=== PATIENT | female | born 1955 | race Two or more races ===

== ENCOUNTER 2022-07-02 02:32 | Inpatient (IN) | payer OTHER ==
[~2022-07-02] VITALS: Ht 154.9 cm; Wt 77.6 kg
--- NOTE | 2022-07-02 02:40 | NUR ---
BB RA 86 FROM HOME FOR GEN WEAKNESS AND TACHYCARDIA. PLACED IN BED ONE ON MONTIOR. NOTED WITH ELEVATED HR. MADE AWARE.
[2022-07-02] MEDS ORDERED: ETOMIDATE 2 MG/ML VIAL IV ONE (03:00)
[2022-07-02] MEDS ORDERED: ETOMIDATE 2 MG/ML VIAL ONE (03:01)
[2022-07-02 03:40] LABS: BASOPHILS # (AUTO) 0.1 K/uL (0.0-0.2); BASOPHILS % (AUTO) 0.4 % (0.0-2.0); EOSINOPHILS % (AUTO) 0.1 % (0.0-6.0); HEMATOCRIT 33 % (33-45); HEMOGLOBIN 10.7 g/dL (11.5-14.8); LYMPHOCYTES # (AUTO) 1.7 K/uL (0.8-4.8); LYMPHOCYTES % (AUTO) 11.5 % (20.0-44.0); MEAN CORPUSCULAR HGB CONC 33 g/dl (31.0-36.0); MEAN CORPUSCULAR VOLUME 86 fL (82-100); MONOCYTES # (AUTO) 0.8 K/uL (0.1-1.30); MONOCYTES % (AUTO) 5.5 % (2.0-12.0); NEUTROPHILS # (AUTO) 12.5 K/uL (1.8-8.9); NEUTROPHILS % (AUTO) 82.5 % (43.0-81.0); PLATELET COUNT (AUTO) 390 K/uL (150-450); WHITE BLOOD COUNT (AUTO) 15.1 K/uL (4.3-11.0)
[2022-07-02 03:53] LABS: CARBON DIOXIDE 20 mmol/L (21-32); CHLORIDE 97 mmol/L (98-107); CREATININE 0.8 mg/dL (0.6-1.3); GLUCOSE 184 mg/dL (74-106); POTASSIUM 4.5 mmol/L (3.5-5.1); SODIUM SERUM 134 mmol/L (136-145); UREA NITROGEN, BLOOD 13 mg/dL (7-18)
[2022-07-02] MEDS ORDERED: VANCOMYCIN 1 GM in IV D5W 250 ML IV ONE (04:00)
[2022-07-02] MEDS ORDERED: IV NS 0.9% 1,000 ML BAG IV ONE (04:00)
[2022-07-02] MEDS ORDERED: CEFEPIME 1 GM in IV D5W 50 ML IV ONE (04:00)
--- NOTE | 2022-07-02 04:00 | NUR ---
PER LAB, LACTIC ACID 5.8
[2022-07-02 04:14] LABS: D-DIMER 4.23 mg/L(FEU (0.17-0.50)
[2022-07-02 04:16] LABS: ALANINE AMINOTRANSFERASE 44 U/L (12-78); ALBUMIN 2.2 g/dL (3.4-5.0); ALKALINE PHOSPHATASE 124 U/L (46-116); ASPARTATE AMINOTRANSFERASE 61 U/L (15-37); BILIRUBIN,DIRECT 0.3 mg/dL (0.0-0.2); BILIRUBIN,TOTAL 0.6 mg/dL (0.2-1.0); TOTAL PROTEIN, SERUM 6.2 g/dL (6.4-8.2)
[2022-07-02] MEDS ORDERED: VANCOMYCIN 1 GM VIAL ONE (04:19)
[2022-07-02] MEDS ORDERED: IOHEXOL-350 100 ML VIAL IV ONE (04:26)
[2022-07-02] MEDS ORDERED: CEFTRIAXONE 1 G VIAL ONE (04:36)
--- NOTE | 2022-07-02 04:36 | NUR ---
CALLED [facility] FOR COPY OF POLST.
[2022-07-02] MEDS ORDERED: CEFEPIME 1 GM VIAL ONE (04:40)
--- NOTE | 2022-07-02 05:30 | NUR ---
DR CORNEJO ON THE PHONE WITH COLDWATER
[2022-07-02] MEDS ORDERED: HYDROCODONE/APAP 5/325MG TABLET PO PRN (06:30)
[2022-07-02] MEDS ORDERED: Z GUARD REMEDY 4 OZ OINT TP PRN (06:30)
[2022-07-02] MEDS ORDERED: ACETAMINOPHEN 325 MG TABLET PO PRN (06:30)
[2022-07-02] MEDS ORDERED: MAGNESIUM HYDROXIDE 30 ML UDC PO PRN (06:30)
[2022-07-02] MEDS ORDERED: ENOXAPARIN SODIUM 40 MG/0.4 ML DISP.SYRIN SQ SCH (06:30)
[2022-07-02] MEDS ORDERED: ONDANSETRON HCL/PF 4 MG/2 ML VIAL IVP PRN (06:30)
[2022-07-02] MEDS ORDERED: MAG HYDROX/AL HYDROX/SIMETH 30 ML UDC PO PRN (06:30)
[2022-07-02] MEDS ORDERED: ZOLPIDEM TARTRATE 5 MG TABLET PO PRN (06:30)
[2022-07-02] MEDS ORDERED: IV NS 0.9% 500 ML BAG IV ONE (08:30)
--- NOTE | 2022-07-02 08:40 | NUR ---
BALLET PROFESSOR AT BEDSIDE
--- NOTE | 2022-07-02 09:07 | NUR ---
REPORT GIVEN TO JAYJAY BEATTY FOR CONTINUITY OF CARE.
[2022-07-02] MEDS ORDERED: AMOX-430 PO (09:57)
[2022-07-02] MEDS ORDERED: APIX5TAB PO (09:57)
[2022-07-02] MEDS ORDERED: AMIODARONE 150 MG in IV D5W 100 ML IV ONE (10:30)
[2022-07-02] MEDS ORDERED: AMIODARONE 450 MG in IV D5W 250 ML IV PRN (10:30)
[2022-07-02] MEDS ORDERED: APIXABAN 5 MG TABLET PO SCH (10:30)
[2022-07-02] MEDS: IV NS 0.9% 1,000 ML IV PRN ×2 (11:04→23:23)
--- NOTE | 2022-07-02 11:15 | NUR ---
ADMITTED PT FROM ER, PATIENT ON O2 VIA SIMPLE MASK AT 10LPM. ADMITTING DX SEPSIS, PT C/O SEVERE SOB, CAN TOLERATE ONLY IN UPRIGHT POSITION. PT HAS A HX OF BREAST CA, CURRENTLY ON CHEMO, LAST SESSION ON 06/25, C/O SEVERE WEAKNESS. IV ACCESS RIGHT AC AND RIGHT HAND 20G, UNABLE TO USE LEFT ARM FOR ANY INVASIVE PROCEDURES WELL BP READING D/T LYMPHADENOPATHY. SKIN INTACT. PT IS AMBULATORY, BUT D/T SEVERE WEAKNESS NOT WALKING ON HER OWN AT THIS TIME. PATIENT VERBALIZED WISH TO BE FULL CODE, BUT DNI AND NO CPR COMPRESSIONS, PAPER IN CHART. WILL CONTINUE TO MONITOR.
[2022-07-02] MEDS: HYDROCORTISONE SOD SUCCINATE 100 MG/2 ML VIAL IV SCH ×2 (11:16→13:00)
[2022-07-02] MEDS: PANTOPRAZOLE 40 MG VIAL IV SCH (11:16)
[2022-07-02 12:00] VITALS: BP 104/56
[2022-07-02 12:51] LABS: SITE, VBG Other; VBG COHb 0.3 %; VBG MetHb 0.4 %; VBG O2Hb 78.8 %
[2022-07-02 12:52] LABS: ABG BASE EXCESS 1.9 mmol/L; ABG OXYGEN SATURATION 96.6 % (92.0-98.5); ABG PCO2 39.6 mmHg (35.0-45.0); ABG PH 7.438 (7.350-7.450); AaDO2 286.2 mmHg; COHb 0.3 % (0.5-1.5); MetHb 0.2 % (0.0-1.5); O2Hb 96.1 % (94.0-97.0); SITE, ABG Right Radial; VENT MODE, BG SIMPLE MASK
[2022-07-02] MEDS: methylPREDNISolone SOD SUCC 40 MG/ML VIAL IV SCH ×2 (14:13→21:05)
[2022-07-02] MEDS: CEFEPIME 2 GM in IV D5W 100 ML IV SCH (15:22)
[2022-07-02] MEDS: VANCOMYCIN HCL 0.75 GM in IV D5W 250 ML IV SCH (15:22)
[2022-07-02 16:00] VITALS: BP 112/61
[2022-07-02 17:20] LABS: IRON, SERUM 33 ug/dl (50-175); TOTAL IRON BINDING CAPACITY 155 ug/dl (250-450)
[2022-07-02 17:35] LABS: FERRITIN 708 ng/mL (8-388)
--- NOTE | 2022-07-02 19:01 | NUR ---
RN CLOSING NOT PATIENT SITTING IN BED, FAMILY ON A SIDE, ALERT AND ORIENTED X 3-4, O2 VIA SIMPLE MASK AT 10LPM. IV SITE RIGHT HAND PATENT, FLUSHES WELL. ABLE TO MAKE NEEDS KNOWN. SAFETY MEASURES IMPLEMENTED, BED LOCKED AND IN LOWEST POSITION. WILL ENDORSE TO THE PRECISION LENS CENTERER AND EDGER FOR NAHOMI.
--- NOTE | 2022-07-02 19:30 | NUR ---
RN opening notes Received Pt from morning nurse. Pt is sitting in bed comfortably accompanied by Pt's daughter. Pt speaks Nepali and able to make needs known. Pt is alert and orientedX3. On 10 simple mask with O2 sat is 98%. No SOB. No S/S of distress noted. IV sites at R hand# 20 is clean, intact and infusing well NS. Tele monitor showed SR. Safety precautions is maintained. Bed at low position, brakes locked, side rails upX3, hob elevated, bed alarm is on and call light is within reach. Will continue to monitor.
[2022-07-02 20:00] VITALS: BP 99/59
[2022-07-02] MEDS: NYSTATIN (PYXIS) 500,000 UNIT/5 ML ORAL.SUSP PO SCH (20:30)
[2022-07-02] MEDS: ENOXAPARIN SODIUM 80 MG/0.8 ML DISP.SYRIN SQ SCH (21:06)
--- NOTE | 2022-07-02 21:06 | NUR ---
RN notes Held nystatin/po for pending swallow eval. Pt unable to swallow. Will continue to monitor.
--- NOTE | 2022-07-02 22:40 | NUR ---
RN notes Informed and notified Dr. Elam that Pt is pending swallow. Pt failed nursing bedside swallow eval. ordered NPO. Charge nurse is aware and informed. Will continue to monitor.
--- NOTE | 2022-07-02 23:08 | NUR ---
RN notes Pt is complaining of generalized pain. Pt requesting tylenol. Informed and notified Dr. Elam that Pt requesting tylenol for pain and also informed MD that Pt has tylenol/PO. Pt is pending swallow eval. MD ordered tylenol 650mg/supp/PRN. Ordered carry out. Will continue to monitor.
[2022-07-02] MEDS ORDERED: ACETAMINOPHEN 650 MG/SUPP.RECT RC PRN (23:30)
--- NOTE | 2022-07-02 23:41 | NUR ---
RN notes Pt is complaining of generalized pain. Pt requesting tylenol. administered tylenol 650mg/supp. as ordered. safety precautions is maintained. will continue to monitor.
[2022-07-03] VITALS: BP 98/56
--- NOTE | 2022-07-03 03:03 | NUR ---
RN notes Noted Pt removed simple mask. Put Pt back to simple mask. O2 sat is 98% and HR 130. Explained risks and benefits. Pt verbalize understanding. Informed and notified Dr. Elam. ordered EKG stat.
--- NOTE | 2022-07-03 03:13 | NUR ---
RN notes EKG showed afib with RVR. Notified and informed Dr. Elam. ordered alee drhari. charge nurse is aware and informed. Informed and notified that Pt has history of afib with RVR on eliquis. Order carry out. Addendum: 07/03/22 at 0411 by CLAYTON JEFFERS RN EKG HR at 138 bpm afib with RVR
[2022-07-03] MEDS: CEFEPIME 2 GM in IV D5W 100 ML IV SCH ×2 (03:42→15:33)
[2022-07-03] MEDS ORDERED: AMIODARONE 150 MG/3 ML VIAL IV ONE (03:59)
[2022-07-03 04:00] VITALS: BP 100/47
[2022-07-03] MEDS ORDERED: AMIODARONE 450 MG in IV D5W 241 ML IV PRN (04:00)
--- NOTE | 2022-07-03 04:05 | NUR ---
RN notes Pt is back to Sinus rhtym HR at 96. informed and notify Dr. Elam. ordered to held amiodorone. Charge nurse is aware and informed.
--- NOTE | 2022-07-03 04:19 | NUR ---
RN notes Pt just informed that Pt has allergy to steroid. Not administered solumedrol. Dr. Elam is aware and informed. Charge nurse is aware and informed. Will continue to monitor.
[2022-07-03] MEDS: methylPREDNISolone SOD SUCC 40 MG/ML VIAL IV SCH ×3 (04:25→20:12)
[2022-07-03] MEDS: VANCOMYCIN HCL 0.75 GM in IV D5W 250 ML IV SCH ×2 (04:26→16:04)
[2022-07-03] MEDS: IV NS 0.9% 1,000 ML IV PRN ×3 (05:43→23:23)
[2022-07-03 06:40] LABS: BILIRUBIN,URINE NEGATIVE (NEGATIVE); COLOR,URINE YELLOW (YELLOW); LEUKOCYTE ESTERASE ,URINE 1+ (NEGATIVE); NITRITE, URINE NEGATIVE (NEGATIVE); PH,URINE 6.5 (5.0-8.0); PROTEIN,URINE NEGATIVE (NEGATIVE); UGLUCOSE NEGATIVE (NEGATIVE); UROBILINOGEN,URINE 0.2 EU/dL (0.2)
--- NOTE | 2022-07-03 06:44 | NUR ---
RN closing notes Pt is resting in bed comfortably. Pt speaks Qatari and able to make needs known. Pt is alert and orientedX3. On 10 simple mask with O2 sat is 99%. No SOB. No S/S of distress noted. Tele monitor showed SR HR at 89. Routine meds were given as ordered. IV sites at R hand# 20 is clean, intact and infusing well NS @ 150 ml/hr. Kept Pt clean, dry and comfortable. Safety precautions is maintained. Bed at low position, brakes locked, side rails upX3, hob elevated, bed alarm is on and call light is within reach. Will endorse to am nurse for NAHOMI.
[2022-07-03 06:54] LABS: BACTERIA,URINE Rare /HPF (None Seen); RBC,URINE 0-2 /HPF (0-2); SQUAMOUS EPITHELIAL CELL,UR Moderate /HPF (None Seen)
[2022-07-03 07:07] LABS: CANCER AG, 15-3 60.6 U/mL (0.0-25.0)
--- NOTE | 2022-07-03 07:30 | NUR ---
KALIE RN OPENING NOTES: Received Pt in bed sleeping comfortably . Pt speaks Burundian and able to make needs known. Pt is alert and orientedX3. On 10 simple mask with O2 sat is 98%. No SOB. No S/S of distress noted. IV sites at R hand# 20 is clean, intact and infusing well NS running at 150 ml/hr. Tele monitor showed SR. Safety precautions is maintained. Bed at low position, brakes locked, side rails upX3, hob elevated, bed alarm is on and call light is within reach. Will continue to monitor.
[2022-07-03 08:00] VITALS: BP 89/51
[2022-07-03 08:44] LABS: THYROID STIMULATING HORMONE 1.613 uIU/mL (0.358-3.74)
--- NOTE | 2022-07-03 08:50 | NUR ---
RN NOTES: SEEN BY DR BUCHANAN VERBALIZED SHE IS WITH SOB WITH ORDER OF ABG, RT MADE AWARE
[2022-07-03] MEDS: NYSTATIN (PYXIS) 500,000 UNIT/5 ML ORAL.SUSP PO SCH ×3 (09:11→17:19)
[2022-07-03] MEDS: PANTOPRAZOLE 40 MG VIAL IV SCH (09:11)
[2022-07-03] MEDS: ENOXAPARIN SODIUM 80 MG/0.8 ML DISP.SYRIN SQ SCH ×2 (09:12→20:14)
[2022-07-03 09:15] LABS: ABG BASE EXCESS -0.9 mmol/L; ABG OXYGEN SATURATION 91.9 % (92.0-98.5); ABG PCO2 39.7 mmHg (35.0-45.0); ABG PH 7.396 (7.350-7.450); ABG PO2 69.5 mmHg (75.0-100.0); AaDO2 314.6 mmHg; COHb 0.3 % (0.5-1.5); MetHb 0.2 % (0.0-1.5); O2Hb 91.4 % (94.0-97.0); SITE, ABG Right Radial
[2022-07-03 09:24] LABS: CALCIUM, SERUM 8.4 mg/dL (8.5-10.1); CREATININE 0.6 mg/dL (0.6-1.3); POTASSIUM 4.3 mmol/L (3.5-5.1)
--- NOTE | 2022-07-03 09:30 | NUR ---
RN NOTES: RELAYED ABG TO DR BUCHANAN WITH NO NEW ORDER
[2022-07-03 09:40] LABS: ALBUMIN 1.8 g/dL (3.4-5.0); BILIRUBIN,DIRECT 0.2 mg/dL (0.0-0.2); BILIRUBIN,TOTAL 0.4 mg/dL (0.2-1.0); PHOSPHORUS 4.3 mg/dL (2.5-4.9)
[2022-07-03 10:07] LABS: IMMUNOGLOBULIN A, SERUM 180 mg/dL (87-352); IMMUNOGLOBULIN G, SERUM 627 mg/dL (586-1602)
[2022-07-03 11:07] LABS: BASOPHILS % (AUTO) 0.2 % (0.0-2.0); HEMATOCRIT 27 % (33-45); HEMOGLOBIN 8.8 g/dL (11.5-14.8); LYMPHOCYTES # (AUTO) 0.3 K/uL (0.8-4.8); MEAN CORPUSCULAR HGB CONC 32 g/dl (31.0-36.0); MEAN CORPUSCULAR VOLUME 87 fL (82-100); MONOCYTES # (AUTO) 0.2 K/uL (0.1-1.30); MONOCYTES % (AUTO) 2.8 % (2.0-12.0); NEUTROPHILS # (AUTO) 7.1 K/uL (1.8-8.9); PLATELET COUNT (AUTO) 273 K/uL (150-450); RED BLOOD CELL COUNT(AUTO) 3.16 MIL/uL (4.0-5.2); WHITE BLOOD COUNT (AUTO) 7.6 K/uL (4.3-11.0)
[2022-07-03 12:00] VITALS: BP 98/47
[2022-07-03 16:00] VITALS: BP 100/42
--- NOTE | 2022-07-03 16:25 | NUR ---
RN NOTES: RECEIVED VANCO TROUGH LEVEL 10 SPOKE TO PHARMACY WILL ADJUST THE DOSE
[2022-07-03] MEDS: VANCOMYCIN 1.25 GM in IV D5W 250 ML IV SCH (17:19)
--- NOTE | 2022-07-03 19:06 | NUR ---
PATIENT SUPPORT PARTNER CLOSING NOT PATIENT SITTING IN BED, FAMILY ON A SIDE, ALERT AND ORIENTED X 3-4, O2 VIA SIMPLE MASK AT 10LPM. IV SITE RIGHT HAND PATENT, IV RUNNING NS AT 150 ML/HR, SWALLOW EVAL WILL BE DONE TOMORROW AM. ABLE TO MAKE NEEDS KNOWN. SAFETY MEASURES IMPLEMENTED, BED LOCKED AND IN LOWEST POSITION. WILL ENDORSE TO THE FIRE PROTECTION FABRICATOR FOR NAHOMI.
--- NOTE | 2022-07-03 19:15 | NUR ---
RN NOTE RECEIVED PT IN BED, ON SEMI OSBORN'S, DAUGHTER AT BEDSIDE, AAO X 4, IN NO ACUTE DISTRESS, SATURATION AT 98% ON 10L VIA SIMPLE MASK, SR ON THE MONITOR, HR IS 78. IV LINE AT R HAND 20G PATENT AND FLUSHING WELL, NS INFUSING AT 150 ML/HR. EXTERNAL URINARY CATHETER IN PLACE, DRAINING TO A CLEAR, YELLOW OUTPUT. SAFETY MEASURES IN PLACE, BED IS LOCKED AND AT LOWEST POSITION, HOB ELEVATED, CALL LIGHT WITHIN REACH OF PATIENT. WILL CONT TO MONITOR AND REASSESS.
[2022-07-03 20:00] VITALS: BP 105/51
[2022-07-03 23:20] LABS: BAND % (MANUAL) 5 % (0.0-5.0); BASOPHILS % (MANUAL) 0 % (0.0-2.0); EOSINOPHILS % (MANUAL) 0 % (0-4); LYMPHOCYTES % (MANUAL) 5 % (16-48); MONOCYTES % (MANUAL) 3 % (0-11.0); NEUTROPHILS % (MANUAL) 87 (42-76)
--- NOTE | 2022-07-03 23:50 | NUR ---
RN NOTE NOTED PT SATING AT 94-97% ON 10L VIA SIMPLE MASK, HOWEVER, APPEARS ANXIOUS STATING SHE IS SHORT OF BREATH, AND UNABLE TO GET TO SLEEP. SHE REQUESTED MEDICATION TO HELP HER SLEEP, SHE SAID SHE IS USUALLY TAKING MELATONIN [address] MINA WAS MADE AWARE, ORDER RECEIVED FOR AMBIEN 5 MG HS PRN.
[2022-07-04] VITALS (7 sets, daily range): BP systolic 101–142; BP diastolic 56–69
[2022-07-04] MEDS ORDERED: ZOLPIDEM TARTRATE 5 MG TABLET PO PRN
[2022-07-04] MEDS: methylPREDNISolone SOD SUCC 40 MG/ML VIAL IV SCH ×3 (05:25→20:31)
[2022-07-04] MEDS: CEFEPIME 2 GM in IV D5W 100 ML IV SCH ×2 (05:25→15:00)
[2022-07-04] MEDS: VANCOMYCIN 1.25 GM in IV D5W 250 ML IV SCH ×2 (05:26→16:00)
[2022-07-04] MEDS: IV NS 0.9% 1,000 ML IV PRN ×2 (06:25→15:00)
--- NOTE | 2022-07-04 07:30 | NUR ---
DESIGN CHIEF OPENING NOTES: Received Pt siiting on the chair . Pt speaks English and able to make needs known. Pt is alert and orientedX3. On 10 simple mask with O2 sat is 98%. No SOB. No S/S of distress noted. IV sites at R hand# 20 is clean, intact and infusing well NS running at 150 ml/hr. Tele monitor showed SR. Safety precautions is maintained. Bed at low position, brakes locked, side rails upX3, hob elevated, bed alarm is on and call light is within reach. Will continue to monitor.
[2022-07-04] MEDS: PANTOPRAZOLE 40 MG VIAL IV SCH (08:44)
[2022-07-04] MEDS: ENOXAPARIN SODIUM 80 MG/0.8 ML DISP.SYRIN SQ SCH ×2 (08:59→20:30)
[2022-07-04] MEDS: NYSTATIN (PYXIS) 500,000 UNIT/5 ML ORAL.SUSP PO SCH ×4 (09:00→16:16)
--- NOTE | 2022-07-04 09:01 | NUR ---
RN NOTES SEEN BY SPEECH THERAPIST, SWALLOW EVAL DONE. OK FOR PUREED DIET, THIN LIQUIDS
--- NOTE | 2022-07-04 09:29 | NUR ---
RN NOTES ABG RESULT RELAYED TO DR. BROWN. PER HIM OK TO LISANDRA
--- NOTE | 2022-07-04 09:30 | NUR ---
RN NOTES DUE MEDS GIVEN
[2022-07-04 09:35] LABS: ABG BASE EXCESS -0.7 mmol/L; ABG OXYGEN SATURATION 93.5 % (92.0-98.5); ABG PCO2 39.2 mmHg (35.0-45.0); ABG PH 7.403 (7.350-7.450); ABG PO2 74.7 mmHg (75.0-100.0); COHb 0.3 % (0.5-1.5); MetHb 0.1 % (0.0-1.5); O2Hb 93.1 % (94.0-97.0); SITE, ABG Right Radial; VENT MODE, BG 10 L NC
--- NOTE | 2022-07-04 10:53 | NUR ---
RN NOTES CONCEPCION SHAH UPDATED ON ABG RESULTS. NNO
--- NOTE | 2022-07-04 18:51 | NUR ---
RECREATION WORKER CLOSING NOT PATIENT SITTING on BED, FAMILY ON A SIDE, ALERT AND ORIENTED X 3-4, O2 VIA SIMPLE MASK AT 10LPM. IV SITE RIGHT HAND PATENT, IV RUNNING NS AT 150 ML/HR. ABLE TO MAKE NEEDS KNOWN. SAFETY MEASURES IMPLEMENTED, BED LOCKED AND IN LOWEST POSITION. WILL ENDORSE TO THE INCOMING SHIFT FOR CONTINUITY OF CARE.
--- NOTE | 2022-07-04 19:00 | NUR ---
INSURANCE RISK SURVEYOR open notes Received Pt in bed awake. family at bedside. Pt speaks Latvian and able to make needs known. Pt is A&OX3. On 10L o2 via simple mask with O2 sat is 98%. No SOB. No S/S of distress noted. IV sites at R hand# 20 is clean, intact and infusing NS running at 150 ml/hr. Tele monitor showed SR. Safety precautions is maintained. Bed at low position, brakes locked, side rails upX3, hob elevated, bed alarm is on and call light is within reach. Will continue to monitor.
[2022-07-05] VITALS (34 sets, daily range): BP systolic 90–185; BP diastolic 18–98
--- NOTE | 2022-07-05 01:10 | NUR ---
RN NOTE PT CO/O SOB DESPITE O2 AT 10L VIA SIMPLE MASK WITH SATS AT 94-97%. DR MINA WAS NOTIFIED, ORDER RECEIVED FOR ALBUTEROL/ATROVENT UNIT DOSE Q4 PRN FOR SOB.
[2022-07-05] MEDS: IV NS 0.9% 1,000 ML IV PRN ×4 (01:12→22:18)
[2022-07-05] MEDS ORDERED: ALBUTEROL FS 2.5 MG/3 ML VIAL.NEB NEB PRN (01:30)
[2022-07-05] MEDS ORDERED: IPRATROPIUM NEB FS 0.5 MG/2.5 ML AMPUL.NEB NEB PRN (01:30)
--- NOTE | 2022-07-05 03:11 | NUR ---
RN NOTE PT 02 SAT SUSTAINS AT 77-83% ON 10L VIA SIMPLE MASK. CHANGED O2 DELIVERY TO NON REBREATHER AT 15LPM. SATURATION NOW AT 98%. WILL CONT TO MONITOR
[2022-07-05] MEDS: methylPREDNISolone SOD SUCC 40 MG/ML VIAL IV SCH ×3 (04:06→21:14)
[2022-07-05] MEDS: CEFEPIME 2 GM in IV D5W 100 ML IV SCH ×2 (04:06→15:08)
[2022-07-05 04:09] LABS: BASOPHILS # (AUTO) 0.1 K/uL (0.0-0.2); BASOPHILS % (AUTO) 0.3 % (0.0-2.0); HEMATOCRIT 29 % (33-45); HEMOGLOBIN 9.2 g/dL (11.5-14.8); LYMPHOCYTES # (AUTO) 0.5 K/uL (0.8-4.8); LYMPHOCYTES % (AUTO) 2.7 % (20.0-44.0); MEAN CORPUSCULAR HGB CONC 31 g/dl (31.0-36.0); MEAN CORPUSCULAR VOLUME 89 fL (82-100); MONOCYTES # (AUTO) 0.7 K/uL (0.1-1.30); NEUTROPHILS # (AUTO) 16.7 K/uL (1.8-8.9); PLATELET COUNT (AUTO) 387 K/uL (150-450); RED BLOOD CELL COUNT(AUTO) 3.29 MIL/uL (4.0-5.2)
--- NOTE | 2022-07-05 04:21 | NUR ---
RN NOTE PT NOTED VERY LETHARGIC WITH DEEP, AGONAL BREATHING, SATURATION 94% ON [address] REBRE[address] MINA NOTIFIED, ORDERS RECEIVED FOR STAT ABG AND CXR.
[2022-07-05 04:46] LABS: CALCIUM, SERUM 8.2 mg/dL (8.5-10.1); CREATININE 0.9 mg/dL (0.6-1.3); PHOSPHORUS 5.5 mg/dL (2.5-4.9)
[2022-07-05 05:00] LABS: ABG BASE EXCESS -6.5 mmol/L; ABG OXYGEN SATURATION 87.7 % (92.0-98.5); ABG PCO2 89.3 mmHg (35.0-45.0); ABG PH 7.062 (7.350-7.450); ABG PO2 77.1 mmHg (75.0-100.0); AaDO2 546.6 mmHg; COHb 0.3 % (0.5-1.5); MetHb 0.1 % (0.0-1.5); O2Hb 87.3 % (94.0-97.0); SITE, ABG Right Radial; VENT MODE, BG 15 L NON REBREATHER
[2022-07-05] MEDS: VANCOMYCIN 1.25 GM in IV D5W 250 ML IV SCH (05:00)
--- NOTE | 2022-07-05 05:03 | NUR ---
RN NOTE ABG RESULTED, DR MINA WAS NOTIFIED. ORDERS RECEIVED TO TRANSFER PT TO ICU ON BIPAP, WITH SETTINGS PRESCRIBED: 17/08, R 22, AT 80%. CARD TENDER AND HOUSE SUP MADE AWARE. PT'S BROTHER AT BEDSIDE.
--- NOTE | 2022-07-05 05:59 | NUR ---
RN NOTE PER HOUSE SUP, PT WILL BE TRANSFERRED TO ICU RM 256 BEFORE END OF SHIFT.
--- NOTE | 2022-07-05 06:43 | NUR ---
RT NOTE CALLED TO PT ROOM FOR SOB. ABG DRAWN AND RESULTS RELAYED TO LEOPOLDO ADAMS. PT PLACED ON 17/08 22 80% PER BRYAN MINA ORDER. WILL CONT TO MONITOR. Addendum: 07/05/22 at 0645 by NINOSKA LMION RT Amended: Links added.
--- NOTE | 2022-07-05 07:34 | NUR ---
RN NOTE PT TRANSFERRED TO ICU 256 VIA ACLS PROTOCOL, RT, PARTY DIRECTOR AND FAMILY AT BEDSIDE. REPORT GIVEN TO CK BEATTY FOR NAHOMI.
--- NOTE | 2022-07-05 07:40 | NUR ---
ICU/RN PT RECEIVED ROOM 256. PT PLACED ON BIPAP. PT ONLY RESPOND TO PAINFUL AND TACTILE STIMULI AT THIS TIME, NO VERBAL RESPONSE, DOES NOT OPEN EYES ON COMMAND. BROTHER AT BEDSIDE. RIGHT THUMB 22G IN PLACE, MIDLINE ORDERED. SR ON MONITOR, O2 SAT STABLE ON BIPAP. PT PLACED NPO DUE TO BIPAP USE AND ALTERED MENTAL STATUS. BED LOCKED AND IN LOWEST POSITION, CALL LIGHT WITHIN REACH, 3 SIDE RAILS UP.
[2022-07-05] MEDS: NYSTATIN (PYXIS) 500,000 UNIT/5 ML ORAL.SUSP PO SCH ×3 (08:17→16:26)
[2022-07-05] MEDS: PANTOPRAZOLE 40 MG VIAL IV SCH (08:19)
[2022-07-05] MEDS: ENOXAPARIN SODIUM 80 MG/0.8 ML DISP.SYRIN SQ SCH ×2 (08:20→21:18)
--- NOTE | 2022-07-05 09:30 | NUR ---
ICU/RN PT AWAKE AND ALERT, VERBALIZES UNDERSTANDING OF POC, FOLLOWS COMMANDS.
[2022-07-05 09:36] LABS: ABG BASE EXCESS -0.2 mmol/L; ABG OXYGEN SATURATION 28.9 % (92.0-98.5); ABG PCO2 60.4 mmHg (35.0-45.0); ABG PH 7.272 (7.350-7.450); COHb 0.1 % (0.5-1.5); MetHb 0.7 % (0.0-1.5); O2Hb 28.7 % (94.0-97.0); SITE, ABG Other; VENT MODE, BG 15/5 RR22
[2022-07-05] MEDS ORDERED: IV NS 0.9% 250 ML IV PRN (11:00)
[2022-07-05] MEDS: VANCOMYCIN 1 GM in IV D5W 250 ML IV SCH ×2 (11:00→22:18)
--- NOTE | 2022-07-05 14:10 | NUR ---
ICU/RN PT TRIAL OFF BIPAP AT 1340. PT UNABLE TO TOLERATE AT THIS TIME, RR IN THE 40S, BP ELEVATED, O2 SAT LOWERING. PT PLACED BACK ON BIPAP.
--- NOTE | 2022-07-05 19:15 | NUR ---
ICU/BOAT RENTAL CLERK RECIEVED REPORT FROM DAY NURSE. SEE FLOWSHEET FOR ASSESSMENT. SEE IV SPREAD SHEET FOR IV. PT IS CURRENTLY ON SIMPLE MASK. PT APPEARS TO HAVE SOME ANXIETY. LOOKS TO BE DEPENDANT OF FAMILY MEMBERS, ALWAYS REACHING FOR FAMILY MEMBERS. WILL MONITOR THIS PT.
--- NOTE | 2022-07-05 21:00 | NUR ---
ICU/POULTRYMAN CHERY COTA CAME TO SEE PT, PT'S LEFT ARM IS EXTREMELY SWOLLEN WITH +4 EDEMA. SHE ORDERED DUPLEX STUDY TO R/O DVT SINCE PT HAS HX OF DVT. ALSO GAVE ORDER FOR CALIXTO CATH SINCE PT IS GETTING 150ML/HR IVF AND HAS GONE TO THE BATHROOM X2 ONLY. ALSO NOTED FEET AND LEGS ARE +2 EDEMA.
--- NOTE | 2022-07-05 22:30 | NUR ---
ICU/2ND GRADE TEACHER CALIXTO CATH WAS PLACED TO CLOSELY MONITOR THIS PT AND HER URINE OUTPUT. PT HAD ONLY VOIDED X2 IN 12 HRS. PT TOLERATED THE CALIXTO WELL. PT THEN PLACED ON BIPAP 15/5, RATE 22, 40%. PT APPEARED TO HAVE SOME SHORTNESS OF BREATH WHEN MOVING FROM CHAIR TO BED. WILL MONITOR THIS PT.
[2022-07-06] VITALS (24 sets, daily range): BP systolic 104–154; BP diastolic 42–112
[2022-07-06] MEDS: methylPREDNISolone SOD SUCC 40 MG/ML VIAL IV SCH ×2 (04:52→12:11)
[2022-07-06] MEDS: CEFEPIME 2 GM in IV D5W 100 ML IV SCH ×2 (04:52→16:19)
[2022-07-06 05:10] LABS: BASOPHILS % (AUTO) 0.2 % (0.0-2.0); HEMATOCRIT 26 % (33-45); HEMOGLOBIN 8.4 g/dL (11.5-14.8); LYMPHOCYTES # (AUTO) 0.4 K/uL (0.8-4.8); LYMPHOCYTES % (AUTO) 4.3 % (20.0-44.0); MEAN CORPUSCULAR HGB CONC 33 g/dl (31.0-36.0); MEAN CORPUSCULAR VOLUME 87 fL (82-100); MONOCYTES # (AUTO) 0.4 K/uL (0.1-1.30); MONOCYTES % (AUTO) 3.4 % (2.0-12.0); NEUTROPHILS # (AUTO) 9.5 K/uL (1.8-8.9); NEUTROPHILS % (AUTO) 92.1 % (43.0-81.0); PLATELET COUNT (AUTO) 212 K/uL (150-450); RED BLOOD CELL COUNT(AUTO) 2.94 MIL/uL (4.0-5.2); WHITE BLOOD COUNT (AUTO) 10.3 K/uL (4.3-11.0)
[2022-07-06 05:25] LABS: CALCIUM, SERUM 7.9 mg/dL (8.5-10.1); CREATININE 0.7 mg/dL (0.6-1.3); MAGNESIUM 1.9 mg/dL (1.8-2.4); PHOSPHORUS 2.4 mg/dL (2.5-4.9); POTASSIUM 3.2 mmol/L (3.5-5.1)
--- NOTE | 2022-07-06 08:00 | NUR ---
RN NOTES RECEIVED PATIENT ON BIPAP, SETTINGS ARE 15/5, AC-22, FIO2-40%. PATIENT AWAKE A/O X3, ABLE TO VERBALIZE NEEDS. PATIENT DNR/DNI, ON CHEMICAL CODE. IV ACCESS ON NAHUM MIDLINE INFUSING TKO@10ML/HR. PATIENT HAS GENERALIZED EDEMA. DUE MEDICATION ADMINISTERED, CALIXTO DRAINING VIA GRAVITY. VSS, LAB VALUES REVIEWED AND GET ORDERS. CALL LIGHT WITHIN TO REACH, SISTER NEXT TO THE BED. WILL FOLLOW UP.
[2022-07-06] MEDS: NYSTATIN (PYXIS) 500,000 UNIT/5 ML ORAL.SUSP PO SCH ×2 (08:44→12:12)
[2022-07-06] MEDS: FUROSEMIDE 40 MG/4 ML VIAL IV SCH ×2 (08:44→12:14)
[2022-07-06] MEDS: PANTOPRAZOLE 40 MG VIAL IV SCH (08:45)
[2022-07-06] MEDS: ENOXAPARIN SODIUM 80 MG/0.8 ML DISP.SYRIN SQ SCH (08:49)
[2022-07-06] MEDS: POTASSIUM CL. PREMIX PERIPHER. 50 ML IV SCH ×4 (09:09→12:38)
[2022-07-06] MEDS: VANCOMYCIN 1 GM in IV D5W 250 ML IV SCH (10:54)
[2022-07-06 11:00] LABS: ABG BASE EXCESS 3.9 mmol/L; ABG OXYGEN SATURATION 93.2 % (92.0-98.5); ABG PCO2 40.6 mmHg (35.0-45.0); ABG PH 7.457 (7.350-7.450); ABG PO2 69.8 mmHg (75.0-100.0); AaDO2 168.7 mmHg; COHb 0.3 % (0.5-1.5); MetHb 0.3 % (0.0-1.5); O2Hb 92.6 % (94.0-97.0); SITE, ABG Right Radial; VENT MODE, BG 15 IPAP/ 5 EPAP
--- NOTE | 2022-07-06 11:48 | NUR ---
rn notes get call from [facility] to transfer patient back to them today. Notified hospitalist Chikis HARDWARE DESIGNER, and case management about transferring patient. per hospitalist patient will clear up with unit assembler Dr Martinez . Dr Martinez notified waiting for respond.
[2022-07-06] MEDS ORDERED: Sodium Phosphate 15 MMOL in IV NS 0.9% 245 ML IV SCH ×2 (12:00→13:00)
--- NOTE | 2022-07-06 12:57 | NUR ---
RN NOTES AFTER ABG RESULT Dr IRBY NUCLEAR WORKER TECHNICIAN CLEAR PATIENT TO TRANSFER TO THE [facility]. CASE MANAGEMENT , AND HOSPITALIST NOTIFIED.
--- NOTE | 2022-07-06 17:00 | NUR ---
RN NOTES PATIENT DISCHARGE AT THIS TIME TO THE [facility] ROOM 5110 BED B. REPORT GIVEN KALIE RN NAME SAMY. RN VERBALIZED UNDERSTANDING. PATIENTS FAMILY NEXT TO HE BED. DISCHARGE information explained patient anD family. patient verbalized understanding. belonging with the patient. patient sign paperwork. GM/SVP GLOBAL PUBLISHER BUSINESS patient VIA [facility] . PATIENT STABLE.
[2022-07-07 09:07] LABS: *SPE A/G RATIO 0.7 (0.7-1.7); *SPE ALPHA-1-GLOBULIN 0.5 g/dL (0.0-0.4); *SPE BETA GLOBULIN 0.8 g/dL (0.7-1.3); *SPE M-SPIKE Not Observed g/dL (Not Observed)
[2022-07-07 10:07] LABS: IMMUNOGLOBULIN M, SERUM 40 mg/dL (26-217)
== END 2022-07-06 17:00 | disposition short-term general hospital (02) | DRG 871 ==
LOC: ER 02:35 → EDSEX 02:35 → ICUOV 09:16 → TELE1 10:05 → TELE-TD 07-03 03:49 → TELE1 07-03 13:03 → ICU 07-05 07:33
PROVIDERS: ADMIT Registered Nurse; ATTEND Registered Nurse
PROC: 5A09457 Assistance with Respiratory Ventilation, 24-96 Consecutive Hours, Continuous Positive Airway Pressure (ICD-10-PCS; principal; 2022-07-05)
PROC: 05H933Z Insertion of Infusion Device into Right Brachial Vein, Percutaneous Approach (ICD-10-PCS; 2022-07-05)
DX: A41.9 Sepsis, unspecified organism (principal); G93.41 Metabolic encephalopathy; J15.6 Pneumonia due to other Gram-negative bacteria; J96.01 Acute respiratory failure with hypoxia; R65.21 Severe sepsis with septic shock; J96.02 Acute respiratory failure with hypercapnia; R57.1 Hypovolemic shock; N39.0 Urinary tract infection, site not specified; B37.0 Candidal stomatitis; E87.20 Acidosis, unspecified; C50.919 Malignant neoplasm of unspecified site of unspecified female breast; B96.89 Other specified bacterial agents as the cause of diseases classified elsewhere; Z86.711 Personal history of pulmonary embolism; Z79.01 Long term (current) use of anticoagulants; D64.9 Anemia, unspecified; I48.91 Unspecified atrial fibrillation; I10 Essential (primary) hypertension; E88.09 Other disorders of plasma-protein metabolism, not elsewhere classified; R13.10 Dysphagia, unspecified; Z20.822 Contact with and (suspected) exposure to COVID-19; Z88.2 Allergy status to sulfonamides; Z88.5 Allergy status to narcotic agent; Z88.8 Allergy status to other drugs, medicaments and biological substances
CPT/HCPCS: 36410; 36415; 36600; 71045-TC; 80048-TC; 80061-TC; 80076-TC; 80202-TC; 81001; 82378; 82533; 82607-TC; 82728-TC; 82784; 82803-TC; 83540-TC; 83605-TC; 83735-TC; 83880; 84100-TC; 84155; 84165; 84443-TC; 84484-TC; 85025-TC; 85378-TC; 85730-TC; 86300; 86334; 87040-TC; 87081-TC; 87086-TC; 92526; 92611-TC; 93307-TC; 93970-TC; 93971-TC; 94660; 94799-TC; 97110-TC; 97530-TC; A4223; A9563; C9113; C9803; G0378; J0282; J0692; J0696; J1650; J1720; J1940; J2920; J3370; J3480; J3490; J7030; J7040; J7050; J7060; Q9967